=== PATIENT | female | born 1965 | race Caucasian/White ===

== ENCOUNTER 2021-04-17 16:32 | Outpatient (REF) | payer BC, SELFPAY ==
[2021-04-17 17:35] LABS: Alanine Aminotransferase 40 U/L (0-31); Albumin Level 4.4 g/dL (3.5-5.0); Alkaline Phosphatase 105 U/L (39-117); Aspartate Amino Transferase 20 U/L (5-31); Bilirubin Total 0.6 mg/dL (0.0-1.0); Blood Urea Nitrogen 14 mg/dL (9-16); Calcium 9.4 mg/dL (8.4-10.2); Estimated Glomerular Filt Rate > 60; Glucose Random 106 mg/dL (60-115); Total Protein 6.8 g/dL (6.5-8.0)
[2021-04-17 17:50] LABS: T4 Thyroxine 6.8 ug/dL (4.5-12.0); Thyroid Stimulating Hormone 1.11 uIU/mL (0.32-4.0)
[2021-04-17 17:53] LABS: Anion Gap 13 (12-20); Carbon Dioxide 22 mmol/L (22-29); Chloride 111 mmol/L (96-108); Potassium 4.3 mmol/L (3.3-5.1); Sodium 142 mmol/L (135-145)
[2021-04-17 18:03] LABS: Folate 7.9 ng/mL (> or = 4.0); Vitamin B12 319 pg/mL (200-900)
== END 2021-04-17 16:33 | disposition home or self-care (01) ==
LOC: HO.LAB 16:32
PROVIDERS: PCP Internal Medicine; Visit Provider Psychiatry & Neurology Neurology
DX: G31.84 Mild cognitive impairment of uncertain or unknown etiology (principal)
CPT/HCPCS: 36415; 80053; 82607; 82746; 84436; 84443

== ENCOUNTER 2021-04-30 16:22 | Outpatient (REF) | payer BC, SELFPAY ==
--- NOTE | ~2021-04-30 | CT_ITS ---
EXAMINATION: CT HEAD WITHOUT CONTRAST CLINICAL INFORMATION: Mild cognitive impairment COMPARISON: None TECHNIQUE: Contiguous axial imaging was performed from the skull base to vertex without intravenous administration of contrast. This CT examination was performed using dose optimization techniques as appropriate, variously including the following: *Automated exposure control *Adjustment of mA and/or kV according to patient size (this includes techniques or standardized protocols for targeted exams where dose is matched to indication/reason for exam; i.e. extremities or head) *Use of iterative reconstruction technique DLP: 853 mGy-cm FINDINGS: There is no evidence of acute intracranial hemorrhage or territorial infarction. No abnormal mass effect or midline shift is seen. Fleming to white matter differentiation is well preserved. No extra-axial fluid collections are identified. The ventricles are normal in size. There is no abnormal attenuation within the brain parenchyma. The osseous structures and soft tissues are normal. The mastoid air cells and visualized portions of the paranasal sinuses are well aerated. CT/CT head/brain wo con IMPRESSION: Unremarkable exam.
== END 2021-04-30 16:23 | disposition home or self-care (01) ==
LOC: HO.CT 16:22
PROVIDERS: PCP Internal Medicine; Visit Provider Psychiatry & Neurology Neurology
DX: G31.84 Mild cognitive impairment of uncertain or unknown etiology (principal)
CPT/HCPCS: 70450

== ENCOUNTER 2022-02-26 16:47 | Emergency (ER) | payer BC, SELFPAY ==
[2022-02-26 17:05] VITALS: BP 185/70; PULSE 75; RESP 18; TEMP 36.8; O2SAT 99; BMI 34.3
--- NOTE | 2022-02-26 19:03 | ED_ITS ---
HPI - Dizziness General Chief Complaint: Dizziness Stated Complaint: Vertigo/Vomiting Time Seen by Provider: 02/26/22 19:03 Source: patient Mode of arrival: ambulatory Limitations: no limitations History of Present Illness HPI Narrative: Patient history of vertigo in the past for last few days been having similar e pisode got worse in last 2 days was seen at [facility] Emergency Room had a CT scan and labs which were negative discharged on meclizine comes here for worsening of dizziness with nausea and vomiting patient was seen by neurologist prior to sending to the ER. Patient denies any headache patient is on Lovenox for anticardiolipin syndrome followed by [facility] Related Data Previous Rx's Medication Instructions Recorded lorazepam 1 mg tablet 1 mg PO BID PRN vertigo #10 tabs 02/26/22 ondansetron 4 mg disintegrating 4 mg PO Q6-8H PRN nausea and 02/26/22 tablet vomiting #10 tabs Allergies Allergy/AdvReac Type Severity Reaction Status Date / Time No Known Allergies Allergy Verified 02/26/22 19:15 [facility] Past Medical History Medical History (Updated 02/27/22 @ 00:03 by Background Emily) Anti-cardiolipin antibody syndrome Anticoagulation adequate 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 Oriented X3. In moderate distress. Eyes: PERRLA, no nystagmus ENT: Pharynx normal. Oral Mucosa moist Neck: Normal inspection. Neck supple. CVS: Normal heart rate and rhythm. Pulses normal. Respiratory: No respiratory distress. Equal air entry bilateral, no wheezing/rales/rhonchi Abdomen: Soft and nontender. Bowel sounds are present, no mass palpable, no CVA tenderness Skin: Skin warm and dry. Normal skin color. Normal skin turgor. Extremities: No lower extremity edema. No calf tenderness Neuro: Oriented X 3. No motor deficit. No sensory deficit.No cerebellar signs , cranial nerves II-XII intact MDM - Dizziness MDM Narrative Medical decision making narrative: Patient had CT scan of the head done yesterday which was negative no headache at this time patient felt better after Valium able to ambulate went to bathroom clinically patient had benign positional vertigo will discharge patient home on Ativan and Zofran Medical Records Attestation: I reviewed the patient's medical records. Lab Data Attestation: I reviewed the patient's lab results. Result diagrams: 02/26/22 19:41 02/26/22 Unknown Labs: Lab Results 02/26/22 02/26/22 Range/Units 19:41 Unknown WBC 12.2 H (4.8-10.8) X10*3/uL RBC 4.89 (4.20-5.50) X10*6/uL Hgb 13.5 (12.0-16.0) g/dl Hct 41.4 (37.0-47.0) % MCV 84.7 (80.0-98.0) fL MCH 27.6 (27.0-33.0) pg MCHC 32.6 (31.0-35.0) g/dl RDW 13.3 (11.0-16.0) % Plt Count 250 (160-400) X10*3/uL MPV 11.9 (9.4-12.3) fL Immature Gran % (Auto) 0.4 (0.0-0.4) % Neut % (Auto) 86.3 H (45-73) % Lymph % (Auto) 8.7 L (20-40) % [place] % (Auto) 4.0 (2-11) % Eos % (Auto) 0.2 (0-4) % Baso % (Auto) 0.4 (0-2) % Lymph # (Auto) 1.1 L (1.2-4.9) X10*3/uL [place] # (Auto) 0.5 (0.1-1.2) X10*3/uL Eos # (Auto) 0.0 (0.0-0.4) X10*3/uL Baso # (Auto) 0.1 (0.0-0.2) X10*3/uL Abs Immat Gran (auto) 0.05 H (0.00-0.03) X10*3/uL Absolute Neuts (auto) 10.5 H (2.0-8.3) x10*3/uL Absolute Nucleated RBC 0.000 (0.0-0.012) X10*3/uL Nucleated RBC % (auto) 0.0 (0.0-0.2) /100WBC Sodium Cancelled Potassium Cancelled Chloride Cancelled Carbon Dioxide Cancelled Anion Gap Cancelled BUN Cancelled Creatinine Cancelled Estim Creat Clear Calc Cancelled Estimated GFR Cancelled Random Glucose Cancelled Calcium Cancelled Discharge Plan Discharge Clinical Impression: Benign paroxysmal positional vertigo Patient Disposition: Home, Self-Care Instructions: Benign Paroxysmal Positional Vertigo (ED) Additional Instructions: Care and cautions as advised Continue meclizine 1 tablet every 8 hours as needed Start taking Ativan 1 tablet every 8 hours as needed for severe vertigo Brannon maneuver as advised Follow with ENT Prescriptions: New lorazepam 1 mg tablet 1 mg PO BID PRN (Reason: vertigo) Qty: 10 0RF ondansetron 4 mg tablet,disintegrating 4 mg PO Q6-8H PRN (Reason: nausea and vomiting) Qty: 10 0RF Interventions: ED Discharge Assessment Last Done: 02/26/22 23:25 Discharge Date/Time: 02/26/22 23:26
[2022-02-26] MEDS: 0.9 % Sodium Chloride 1,000 ML 999 ML IV ×2 (19:41→20:49)
[2022-02-26] MEDS: Prochlorperazine Edisylate 10 MG/2 ML VIAL IVPUSH (19:41)
[2022-02-26] MEDS: diazePAM 10 MG/2 ML CARTRIDGE 5 MG IVPUSH (19:45)
[2022-02-26 19:51] LABS: MANUAL DIFF FLAG NO
[2022-02-26 19:53] LABS: Basophils Absolute Auto 0.1 X10*3/uL (0.0-0.2); Basophils Percent Auto 0.4 % (0-2); Eosinophils Percent Auto 0.2 % (0-4); Hematocrit 41.4 % (37.0-47.0); Hemoglobin 13.5 g/dl (12.0-16.0); Imm Gran Abs Auto 0.05 X10*3/uL (0.00-0.03); Imm Gran Pct Auto 0.4 % (0.0-0.4); Lymphocytes Absolute Auto 1.1 X10*3/uL (1.2-4.9); Lymphocytes Percent Auto 8.7 % (20-40); Mean Corpuscular HGB Conc 32.6 g/dl (31.0-35.0); Mean Corpuscular Hemoglobin 27.6 pg (27.0-33.0); Mean Corpuscular Volume 84.7 fL (80.0-98.0); Mean Platelet Volume 11.9 fL (9.4-12.3); Monocytes Absolute Auto 0.5 X10*3/uL (0.1-1.2); Neutrophils Absolute Auto 10.5 x10*3/uL (2.0-8.3); Neutrophils Percent Auto 86.3 % (45-73); Platelet Count 250 X10*3/uL (160-400); Red Blood Count 4.89 X10*6/uL (4.20-5.50); Red Cell Distribution Width 13.3 % (11.0-16.0); White Blood Count 12.2 X10*3/uL (4.8-10.8)
[2022-02-26 20:24] VITALS: BP 164/74; PULSE 86; RESP 16; TEMP 36.6; O2SAT 98
[2022-02-26] MEDS: ondansetron HCL 4 MG/2 ML VIAL IVPUSH (20:49)
[2022-02-26 22:47] VITALS: BP 156/80; PULSE 84; RESP 16; TEMP 36.8; O2SAT 98
[2022-02-26] MEDS: Meclizine HCl 25 MG TABLET 50 MG PO (23:21)
== END 2022-02-26 23:26 | disposition home or self-care (01) ==
PROVIDERS: Emergency Provider Internal Medicine; PCP Internal Medicine
DX: H81.10 Benign paroxysmal vertigo, unspecified ear (principal); D68.61 Antiphospholipid syndrome; Z86.711 Personal history of pulmonary embolism; Z79.899 Other long term (current) drug therapy
CPT/HCPCS: 36415; 85025; 96361; 96374; 96375; 99284; J2405; J3360

== ENCOUNTER 2024-01-27 10:28 | Outpatient (REF) | payer BC, SELFPAY ==
[2024-01-27 10:47] LABS: MANUAL DIFF FLAG NO
[2024-01-27 12:02] LABS: Basophils Percent Auto 0.7 % (0-2); Eosinophils Absolute Auto 0.2 X10*3/uL (0.0-0.4); Eosinophils Percent Auto 2.7 % (0-4); Hematocrit 37.2 % (37.0-47.0); Imm Gran Abs Auto 0.02 X10*3/uL (0.00-0.03); Imm Gran Pct Auto 0.3 % (0.0-0.4); Lymphocytes Absolute Auto 1.6 X10*3/uL (1.2-4.9); Lymphocytes Percent Auto 26.2 % (20-40); Mean Corpuscular HGB Conc 32.3 g/dl (31.0-35.0); Mean Corpuscular Hemoglobin 29.6 pg (27.0-33.0); Mean Corpuscular Volume 91.6 fL (80.0-98.0); Mean Platelet Volume 11.3 fL (9.4-12.3); Monocytes Absolute Auto 0.4 X10*3/uL (0.1-1.2); Monocytes Percent Auto 6.3 % (2-11); Neutrophils Absolute Auto 3.8 x10*3/uL (2.0-8.3); Neutrophils Percent Auto 63.8 % (45-73); Platelet Count 196 X10*3/uL (160-400); Red Blood Count 4.06 X10*6/uL (4.20-5.50); Red Cell Distribution Width 12.6 % (11.0-16.0); White Blood Count 5.9 X10*3/uL (4.8-10.8)
[2024-01-27 12:38] LABS: Erythrocyte Sedimentation Rate 12 MM/HR (0-20)
[2024-01-27 12:42] LABS: Estimated Average Glucose 85 mg/dL; Hemoglobin A1c % 4.6 % (<6.0)
[2024-01-27 12:47] LABS: Alanine Aminotransferase 20 U/L (0-31); Albumin Level 4.2 g/dL (3.5-5.0); Alkaline Phosphatase 91 U/L (39-117); Anion Gap 13 (12-20); Aspartate Amino Transferase 17 U/L (5-31); Bilirubin Total 0.3 mg/dL (0.0-1.0); Blood Urea Nitrogen 15 mg/dL (9-16); C Reactive Protein 1.25 mg/dL (< or = 0.50); Calcium 8.9 mg/dL (8.4-10.2); Carbon Dioxide 25 mmol/L (22-29); Chloride 110 mmol/L (96-108); Estimated Glomerular Filt Rate > 60; Glucose Random 106 mg/dL (60-115); Iron 59 mcg/dL (30-160); Percent Iron Saturation 26 % (15-50); Potassium 3.7 mmol/L (3.3-5.1); Sodium 144 mmol/L (135-145); Total Iron Binding Capacity 226 mcg/dL (228-428); Total Protein 6.7 g/dL (6.5-8.0); Unsaturated Iron Binding 167 ug/dL
[2024-01-27 12:54] LABS: Rheumatoid Factor < 13.0 IU/mL (<15.0)
[2024-01-27 13:06] LABS: Free T4 (Free Thyroxine) 0.77 ng/dL (0.71-1.85); Thyroid Stimulating Hormone 0.94 uIU/mL (0.32-4.0); Vitamin D 25-OH Total 24.8 ng/mL (>30)
[2024-01-27 13:09] LABS: Folate 6.1 ng/mL (> or = 4.0); Vitamin B12 430 pg/mL (200-900)
[2024-01-28 13:59] LABS: Lyme Abs Screen <0.90 index
[2024-01-28 14:33] LABS: Cyclic Citrullinated Peptide <16 UNITS
[2024-01-29 07:44] LABS: Anti DNA DS Antibody 1 IU/mL
[2024-02-02 07:59] LABS: Anti Nuclear Antibody Pattern Nuclear, Homogeneous; Anti Nuclear Antibody Screen POSITIVE (NEGATIVE)
[2024-02-04 11:08] LABS: A. Phagocytophilum Ab IgG <1:64 (<1:64); A. Phagocytophilum Ab IgM <1:20 (<1:20); E. Chaffeensis Ab IgG <1:64 (<1:64); E. Chaffeensis Ab IgM <1:20 (<1:20)
== END 2024-01-27 10:29 | disposition home or self-care (01) ==
LOC: HO.LAB 10:28
PROVIDERS: PCP Internal Medicine; Visit Provider Physician Assistant
DX: R53.83 Other fatigue (principal)
CPT/HCPCS: 36415; 80053; 82306; 82607; 82746; 83036; 83540; 84439; 84443; 85025; 85652; 86038; 86039; 86140; 86200; 86225; 86431; 86617; 86618; 86666

== ENCOUNTER 2025-07-14 14:25 | Outpatient (AMB) | payer BC, SELFPAY ==
--- NOTE | 2025-07-14 14:32 | MHC.OFFVIS ---
Intake Visit Reasons: Follow up Allergies No Known Allergies Allergy (Verified 07/14/25 14:46) Medication List - Last Reconciled 07/14/25 by Ary Baker CNP acetaminophen-codeine 300-30 mg 2 tabs PO Q6H PRN 30 days alprazolam 0.5 mg PO Q6-8H PRN amitriptyline 150 mg PO BEDTIME bupropion HCl XL 300 mg PO DAILY enoxaparin mg subcut estradiol 0.01%(0.1mg/gram) vaginal fluoxetine 40 mg PO DAILY lorazepam 1 mg PO BID PRN ondansetron 4 mg PO Q6-8H PRN ondansetron HCl 8 mg PO DAILY PRN semaglutide (weight loss) (Wegovy) mg subcut topiramate 100 mg PO BID HPI Comments Details: She was doing okay. Migraines were happening about 1-2x/month with some mild headaches. She had few more migraines this month which she thought may be triggered by lack of sleep. No severe migraines with abnormal sensations or speech difficulties. Tylenol #3 as needed helps. She was waking up between 4-4:30am the last few weeks without specific reason. She was using CPAP, but was finding her mask moving at night lately. Stress was okay. Previously, she was getting about 2-3 headaches/week. Sleep was okay with CPAP and not as tired during day anymore.?No further episodes of abnormal sensation in legs or elsewhere in body or speech difficulties with migraines. On 12/28/2023, she developed severe migraine and had an uncomfortable, crawling sensation that slowly spread up both of her legs. She was told that she was slurring her words and seemed to be falling asleep mid-sentence. She took a two-hour nap. She woke without headache or any other symptoms and speech was normal. The following day, she did not have any symptoms but was advised [place] [facility] [place]. No similar episodes prior to or following this. 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 No triggers identified aside from heat. She has tried Tylenol, Vicodin, and Imitrex for headaches in the past without relief. Hx of antiphospholipid antibody syndrome and pulmonary embolism 01/2017, on Lovenox. 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 Review of Systems Const Denies chills, Denies daytime sleepiness, Denies difficulty sleeping, Reports fatigue, Denies fever(s), Denies frequent falls, Reports headache(s), Denies increased appetite, Denies poor appetite, Denies snoring, Denies weakness, Denies weight gain and Denies weight loss Eyes Denies loss of vision ENT Denies vertigo, Denies dizziness, Reports headache(s) and Denies neck pain Card Denies chest pain at rest, Denies chest pain with activity, Denies syncope, Denies leg edema, Denies palpitations, Denies dyspnea and Denies dyspnea on exertion Resp Denies cough, Denies dyspnea, Denies dyspnea on exertion and Denies snoring GI Denies abdominal pain, Denies constipation, Denies heartburn, Denies diarrhea and Denies nausea Denies urinary frequency, Denies urinary incontinence and Denies urinary urgency Musc Denies abnormal gait, Reports back pain, Denies myalgias, Denies arthralgias, Denies neck pain, Denies numbness and Denies tingling Neuro Denies abnormal gait, Denies vertigo, Denies dizziness, Denies syncope, Denies frequent falls, Reports headache(s), Denies lack of coordination, Denies loss of vision, Denies memory loss, Denies numbness, Denies Other visual disturbances, Denies restless legs, Denies seizure-like activity, Denies tingling, Denies paresthesias, Denies tremor(s) and Denies weakness Psych Denies anxiety, Denies depression, Denies auditory hallucinations, Denies memory loss and Denies visual hallucinations Endo Reports fatigue and Denies palpitations Physical Exam Const Other: General Appearance:? normal, in no acute distress. Heart:? S1, S2 normal, no murmurs. Lungs:? clear anteriorly and posteriorly. Musculoskeletal:? normal. Extremities:? no edema. Psych:? alert, oriented, cognitive function intact, cooperative with exam. Neuro Other: Abnormal Neurological Findings:?R beating nystagmus. Mental Status: alert and oriented X 3. Normal attention, orientation, memory, and affect. Cranial Nerves: Pupils are equal, round, and reactive to light. External ocular muscles are intact. Visual reagan are full, no ptosis. Face is symmetrical, no facial weakness or droop. Facial sensations are normal. Tongue protrudes in midline. Palate elevates symmetrically. Shoulder shrugging is normal Motor Examination: Normal muscle tone, bulk and strength. No atrophy or fasciculations. No drift of the extended upper extremities. DTR 2+. Plantars are flexor. Sensory Exam: Normal light touch, temperature, pinprick, vibration, and joint-position sensations. Rhomberg sign is absent. Coordination: No ataxia. No titubation. Gait Exam: Within normal limits. Cerebellar Signs: Rsmrhy-lr-nios is okay. Extrapyramidal System: No tremor, rigidity with normal facial expressions. No bradykinesia. No bradyphrenia. Normal arm swing and posture. No propulsion or retropulsion. Speech: Normal. Results Reviewed Results Reviewed: 12/29/2023 [place] [facility] [place] Subtle outpouching of distal cervical right internal carotid artery may reflect a subtle focal dissection or pseudoaneurysm which is of unknown acuity, no proximal occlusion or high grade stenosis in the major arteries of the head and neck MRI brain without contrast 12/[place]/2023 [place] [facility] [place] No acute infarct, single small FLAIR bright focus within the left odom radiata which is nonspecific Assessment & Plan Assessment & Plan (1) Migraine: Code(s): G43.909 - Migraine, unspecified, not intractable, without status migrainosus Category: Medical Qualifiers: Intractability: not intractable Migraine type: unspecified Status migrainosus presence: without status migrainosus Qualified Code(s): G43.909 - Migraine, unspecified, not intractable, without status migrainosus Plan: Continue topiramate 50mg 2 tablets twice a day. Continue amitriptyline 150mg 1 tablet at bedtime. Continue acetaminophen-codeine 300-30mg #3 2 tablets as needed q6h for headache #60 for 30 days. Continue ondansetron 8mg 1 tablet as needed for nausea/vomiting #10 for 30 days. Follow up with sleep medicine. Follow up in 6 months or sooner as needed. Medications: New amitriptyline 150 mg PO BEDTIME 90 tabs 1RF 90 days topiramate 100 mg (2 x 50 mg) PO BID 360 tabs 1RF 90 days Refilled acetaminophen-codeine 300-30 mg 2 tabs PO Q6H PRN 60 tabs 0RF pain 30 days Coding Level of Care Code Est Pt Level 4 (63920) Diagnoses Migraine without status migrainosus, not intractable, unspecified migraine type G43.909 Intractability: not intractable Migraine type: unspecified Status migrainosus presence: without status migrainosus
--- OUTSIDE RECORDS SUMMARY | 2025-07-14 20:02 | XMS_ITS | Data Portability ---
Author Organization [facility], Telehealth Patient Home Address [address] [place] [address] Assessment Encounter Date Assessment Date Assessment LastModified by Organization Details LastModified Time 08/08/2023 08/08/2023 Patient agreed and verbally consents to this audio and video Telehealth appt via a secure platform [email or web address] Not available 08/08/2023 11:12:42 Plan of Treatment Reminders Order Date Submit Date Provider Last Modified By Organization Details Last Modified Time Details Appointments FOLLOW UP 15 2025 10:00A M NANCY SUÁREZ Not available Not available Not available Lab iron + TIBC + ferritin, serum 2023 024 [facility], [address] [place] [address], [id number], 01/20/2024 15:21:27 vitamin B12 + folate, serum or blood 2023 024 [facility], [address] [place] [address], [id number], 01/20/2024 15:21:27 vitamin D, 25-hydrox y, total, serum 2023 024 [facility], [address] [place] [address], [address], 01/20/2024 15:21:26 TSH + free T4, serum 2023 024 [facility], [address] [place] [address], [address], 01/20/2024 15:21:26 CBC w/ auto diff 2023 [facility], [address] [place] [address], [id number], 01/20/2024 15:21:26 hemoglobi n A1c, QN, blood 2023 [facility], [address] [place] [address], [address], 01/20/2024 15:21:27 ESR (erythroc yte sedimenta tion rate), blood 2023 [facility], [address] [place] [address], [id number], 01/20/2024 15:21:26 C-reactiv e protein, quantitat rehan, serum or plasma 2023 [facility], [address] [place] [address], [address], 01/20/2024 15:21:27 CMP, serum or plasma 2023 [facility], [address] [place] [address], [address], 01/20/2024 15:21:26 lyme disease igg+igm, serum, reflex western blot 2023 [facility], [address] [place] [address], [id number], 01/29/2024 11:26:47 anaplasma phagocyto philum + ehrlichia chaffeens is IgG + IgM panel, serum 2023 [facility], [address] [place] [address], [address], 02/05/2024 11:38:25 KYLEE + rf (antinucl ear antibodie s + rheumatoi d factor), quantitat rehan, serum 2023 [facility], [address] [place] [address], [address], 02/02/2024 11:15:53 ccp (cyclic citrullin ated peptide) igg, serum 2023 [facility], [address] [place] [address], [address], 01/20/2024 15:21:26 anti-dsdn a Ab, serum, reflex confirmat ion 2023 [facility], [address] [place] [address], [address], 01/20/2024 15:21:27 Referral sleep medicine referral 2021 skylar Chen MD, [address] [facility], [address], [place], [address], 09/05/2022 08:42:59 hand surgeon referral 2021 skylar Schmitt MD, [address] [place] [address], [address], 08/06/2022 13:27:22 Procedures None recorded. Surgeries None recorded. Imaging MR, angiogram , brain, w/o contrast - NOT REQUIRED Procedure codes: 56222 Call Reference #: [id number] Resolutio n: Completed on 4 at 03:45 pm. Call ref #[id number] 05. 2023 [facility] ([facility]), [address], [place], [address], 01/26/2024 09:07:41 electroen cephalogr am 2023 [facility], [address], [address], [place], [address], 02/03/2024 08:07:08 MR, angiogram , carotid arteries, w/ contrast - NOT REQUIRED Procedure codes: 35041, 34854 Call Reference #: [id number] Resolutio n: Completed on 4 at 12:17 pm. Call ref #[id number] 595. 2023 024 [facility] ([facility]), [address], [place], [address], 01/26/2024 09:07:27 Medication Orders Wegovy 1 mg/0.5 mL subcutane ous pen injector 2024 025 [facility] #[id number], [address] [place], [address], 03/30/2025 13:30:00 bupropion HCl XL 150 mg 24 hr tablet, extended release 2023 024 [facility]886, [address], [place], [id number], 03/07/2025 09:12:58 levofloxa devonte 500 mg tablet 2022 023 [facility] #61530, [address], [place], [id number], 10/31/2023 11:47:12 prednison e 10 mg tablet 2022 023 [facility] #00425, [address], [place], [id number], 10/31/2023 11:47:17 phentermi ne 37.5 mg capsule 2022 023 [facility]27502, [address], [place], [id number], 01/20/2024 14:57:39 Medrol ([place]) 4 mg tablets in a dose pack 2022 023 [facility] #88364, [address], [place], [id number], 03/07/2025 09:12:42 phentermi ne 15 mg capsule 2021 022 [facility] #73738, [address], [place], [id number], 10/14/2022 16:05:22 Medrol ([place]) 4 mg tablets in a dose pack 2021 022 [facility] #76051, [address], [place], [id number], 03/07/2025 09:12:42 Patient TargetsNo targets recorded. Patient InstructionsNo instructions recorded. Reason for Referral Hand Surgeon Referral for Ca rpal tunnel syndrome of right wrist rigth sided carpal tunnel and tenosynovitis right wrist Referring Physician: Latia Milan, Internal Medicine, Encounter Date: 07/26/2022 Sleep Medicine Referral for Obstructive sleep apnea syndrome need reassessment of her CPAP, over ten years old Referring Physician: Latia Milan, Internal Medicine, Encounter Date: 07/26/2022 Results Created Date Observation Date Name Description Value Unit Range Abnormal Flag Note LastModifiedBy Organization Detail LastModifiedTime 06/11/2005/15/2023 sleep study , diagn ostic (PROC ) No observ ation record ed. [facility] [address] [place], [address], 06/11/2023 14:57:08 02/13/2002/13/2024 jermaine DIETZ, camelia id arter ies, w/ contr ast No observ ation record ed. [facility] [address] [place], [address], 02/16/2024 12:03:46 02/13/2002/13/2024 MR, jermaine nayak, carot id arter ies, w/ contr ast No observ ation record ed. [facility] [address] [place], [address], 02/16/2024 12:03:47 03/30/20 24 03/19/2024 elect roenc ephal ogram No observ ation record ed. [email or web address] [address], [address], 03/30/2024 13:29:49 03/30/20 24 03/19/2024 elect roenc ephal ogram No observ ation record ed. [email or web address] [address], [address], 04/05/2024 14:13:14 Result Notes None recorded. 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 Active 2017 Not Available [facility] 15:51:08 Obstruct rehan sleep apnea syndrome 26145419 Active 2017 Not Available [facility] 15:51:08 [facility] hyperten vangie 31384100 Active 2017 Not Available [facility] 15:51:08 Pulmonar y embolism 79512469 Active 2017 antiphosp holipid syndrome Not Available [facility] 15:51:08 Hemolyti c anemia 29303897 Active 2017 Not Available [facility] 15:51:08 Antiphos pholipid syndrome 67292317 Active 2017 Not Available [facility] 15:51:08 Intersti tial lung disease 490952836 Active 2017 Not Available [facility] 15:51:08 Migraine 84252851 Active 2017 Not Available [facility] 1 15:51:08 Cough 27671036 Active 2021 NANCY SUÁREZ [address] [place], [address], [facility] 2 15:05:37 Vertigo 927478114 Active 2021 NANCY SUÁREZ [address] [place], [address], [facility] 2 12:12:54 Costal chondrit is 72879295 Active 2021 NANCY SUÁREZ [address] [place], [address], [facility] 2 10:39:25 Acute sinusiti s 31901756 Active 2021 NANCY SUÁREZ [address] [place], [address], [facility] 2 12:18:32 Acute otitis media 4260215 Active 2021 NANCY SUÁREZ [address] [place], [address], [facility] 2 16:12:50 Serous otitis media 11509243 Active 2021 NANCY SUÁREZ [address] [place], [address], [facility] 2 09:32:17 Overweig ht 043830953 Active 2021 NANCY SUÁREZ [address] [place], [address], [facility] 2 09:35:16 Carpal tunnel syndrome of right wrist 56460337196 9108 Active 2021 NANCY SUÁREZ [address] [place], [address], [facility] 2 09:36:54 Fatigue 51865370 Active 2021 NANCY SUÁREZ [address] [place], [address], [facility] 2 09:40:04 Serous otitis media 64872235 Active 2022 NANCY SUÁREZ [address] [place], [address], [facility] 3 12:19:50 Acute urinary tract infectio n 910690658 Active 2022 NANCY SUÁREZ [address] [place], [address], [facility] 3 10:09:07 Insulin resistan ce 149816345 Active 2022 NANCY SUÁREZ [address] [place] [address], [address], [facility] 3 14:23:16 Obesity 695440554 Active 2022 NANCY SUÁREZ [address] [place] [address], [address], [facility] 3 08:59:18 Anemia 106886073 Active 2022 NANCY SUÁREZ [address] [place] [address], [address], [facility] 3 11:11:37 Carotid bruit 117689590 Active 2023 NANCY SUÁREZ [address] [place] [address], [address], [facility] 4 15:11:06 Transien t cerebral ischemia 535183822 Active 2023 NANCY SUÁREZ [address] [place] [address], [address], [facility] 4 15:15:08 Anxiety 28742451 Active 2023 NANCY SUÁREZ [address] [place], [address], [facility] 4 15:18:48 Acute bronchit is 14286086 Active 2024 NANCY SUÁREZ [address] [place], [address], [facility] 5 09:35:20 Problem Notes None recorded. Procedures Surgical History Date Name Laterality Status Provider Name and Address Organization Details Recorded Time 7 Most Recent Mammogram completed [facility] 04/30/2019 08:36:47 7 Date of Last Pap Smear completed [facility] 04/30/2019 08:37:35 Imaging Results None recorded. Procedure Notes None recorded. Medical Equipment None Reported. Allergies No known drug allergies Medications Name Sig Start Date Stop Date Status Note LastModified by Organization Details LastModified Time Prescriptio n - Prior Authorizati on Request active Not Available Not Available N ot Available celecoxib 200 mg capsule 08/19 completed Not Available Not Available Not Available cyclobenzap rine 10 mg tablet TAKE 1 TABLET BY MOUTH THREE TIMES DAILY FOR 15 DAYS 08/19 completed Not Available Not Available Not Available amoxicillin 500 mg capsule TAKE 1 CAPSULE BY MOUTH THREE TIMES DAILY UNTIL GONE 03/08 completed Not Available Not Available Not Available prednisone 10 mg tablet take 50 mg x 2 daystake 40 mg x 2 daystake 30 mg x 2 daystake 20 mg x 2 daystake 10 mg x 2 days 10/30 completed Not Available Not Available Not Available amitriptyli ne 150 mg tablet TAKE 1 TABLET BY MOUTH DAILY AT BEDTIME active Not Available Not Available No t Available azithromyci n 250 mg tablet TAKE 2 TABLETS (500 MG) BY ORAL ROUTE ONCE DAILY FOR 1 DAY THEN 1 TABLET (250 MG) BY ORAL ROUTE ONCE DAILY FOR 4 DAYS 03/07 completed Not Available Not Available Not Available amitriptyli ne 75 mg tablet TAKE 1 TABLET BY MOUTH AT BEDTIME 09/18 completed Not Available Not Available Not Available benzonatate 200 mg capsule TAKE 1 CAPSULE BY MOUTH THREE TIMES DAILY FOR 14 DAYS NEEDED 08/19 completed Not Available Not Available Not Available ondansetron HCl 8 mg tablet TAKE 1 TABLET BY MOUTH NEEDED FOR 30 DAYS 03/07 completed Not Available Not Available Not Available ondansetron HCl 4 mg tablet TAKE 1 TABLET BY MOUTH UP TO THREE TIMES DAILY NEEDED FOR NAUSEA 01/19 completed Not Available Not Available Not Available clobetasol 0.05 % topical cream APPLY 1 APPLICATI ON TOPICALLY TWICE DAILY X 2 WEEKS THEN ONCE DAILY FOR 2 WEEKS 03/07 completed Not Available Not Available Not Available phentermine 15 mg capsule TAKE 1 CAPSULE BY MOUTH EVERY DAY 10/14 completed Not Available Not Available Not Available Periogard 0.12 % mouthwash SWISH WITH 1/2 OZ FOR 30 SECONDS THAN SPIT TWICE DAILY FOR 2 WEEKS 03/11 completed Not Available Not Available Not Available meclizine 12.5 mg tablet TAKE 1 TABLET BY MOUTH THREE TIMES DAILY NEEDED FOR 7 DAYS 10/15 completed Not Available Not Available Not Available acetaminoph en 300 mg-codeine 30 mg tablet TAKE 2 TABLETS BY MOUTH EVERY 6 HOURS NEEDED FOR PAIN FOR 30 DAYS 03/11 completed Not Available Not Available Not Available sulfamethox azole 800 mg-trimetho prim 160 mg tablet TAKE 1 TABLET BY MOUTH EVERY 12 HOURS FOR 7 DAYS 10/30 completed Not Available Not Available Not Available ondansetron 8 mg disintegrat ing tablet DISSOLVE 1 TABLET ON THE TONGUE TWICE DAILY FOR 7 DAYS NEEDED 10/15 completed Not Available Not Available Not Available oxycodone-a cetaminophe n 5 mg-325 mg tablet Take 1 tablet every 6 hours by oral route as needed for 7 days. 07/14 completed Not Available Not Available Not Available alprazolam 0.5 mg tablet TAKE 1 TABLET BY MOUTH EVERY 6 TO 8 HOURS NEEDED 2024 active Not Available Not Available Not Avai lable meclizine 25 mg tablet 10/15 completed Not Available Not Available Not Available metronidazo le 0.75 % topical cream APPLY EXTERNALL Y TO FACE TWICE DAILY 10/15 completed Not Available Not Available Not Available bisacodyl 5 mg tablet,penelope yed release 10/04 completed Not Available Not Available Not Available lorazepam 1 mg tablet TAKE 1 TABLET BY MOUTH TWICE DAILY NEEDED FOR VERTIGO 03/11 completed Not Available Not Available Not Available levofloxaci n 500 mg tablet TAKE 1 TABLET BY MOUTH EVERY DAY 10/30 completed Not Available Not Available Not Available estradiol 0.01% (0.1 mg/gram) vaginal cream 03/07 completed Not Available Not Available Not Available methylpredn isolone 4 mg tablets in a dose pack FOLLOW PACKAGE DIRECTION S 03/07 completed Not Available Not Available Not Available ipratropium bromide 42 mcg (0.06 %) nasal spray 04/30 completed Not Available Not Available Not Available ondansetron 4 mg disintegrat ing tablet DISSOLVE 1 TABLET ON THE TONGUE EVERY 6 TO 8 HOURS NEEDED FOR NAUSEA OR VOMITING 08/19 completed Not Available Not Available Not Available fluoxetine 20 mg capsule TAKE 2 CAPSULES BY MOUTH EVERY DAY active Not Available Not Available No t Available amitriptyli ne 100 mg tablet TK 1 T PO QD HS 09/18 completed Not Available Not Available Not Available phentermine 37.5 mg capsule TAKE 1 CAPSULE BY MOUTH EVERY DAY 01/19 completed Not Available Not Available Not Available amoxicillin 875 mg-potassiu m clavulanate 125 mg tablet TAKE 1 TABLET BY MOUTH EVERY 12 HOURS FOR 7 DAYS 07/26 completed Not Available Not Available Not Available oxycodone 5 mg tablet TAKE 1 TABLET BY MOUTH EVERY 4 HOURS NEEDED FOR PAIN 03/11 completed Not Available Not Available Not Available neomycin-po lymyxin-hyd rocort 3.5 mg-10,000 unit/mL-1 % ear drops,susp SHAKE LIQUID AND INSTILL 4 DROPS TO AFFECTED EAR THREE TIMES DAILY 08/19 completed Not Available Not Available Not Available enoxaparin 60 mg/0.6 mL subcutaneou s syringe 06/30 completed Not Available Not Available Not Available enoxaparin 80 mg/0.8 mL subcutaneou s syringe INJECT 1 SYRINGE EVERY 12 HOURS 03/07 completed Not Available Not Available Not Available enoxaparin 100 mg/mL subcutaneou s syringe 90mg twice a day 10/20 completed Not Available Not Available Not Available azelaic acid 15 % topical gel APPLY TOPICALLY TO FACE 1 TO 2 TIMES DAILY 10/15 completed Not Available Not Available Not Available bupropion HCl XL 300 mg 24 hr tablet, extended release TAKE 1 TABLET DAILY active Not Available Not Available No t Available bupropion HCl XL 150 mg 24 hr tablet, extended release TAKE 1 TABLET BY MOUTH EVERY DAY DIRECTED 03/07 completed Not Available Not Available Not Available topiramate 50 mg tablet TAKE 2 TABLETS BY MOUTH TWICE DAILY active Not Available Not Available No t Available Boostrix Tdap 2.5 Lf unit-8 mcg-5 Lf/0.5 mL intramuscul ar syringe 06/30 completed Not Available Not Available Not Available diclofenac 1 % topical gel APPLY 2 GRAMS TO THE AFFECTED AREA(S) BY TOPICAL ROUTE 4 TIMES PER DAY 03/11 completed Not Available Not Available Not Available GaviLyte-G 236 gram-22.74 gram-6.74 gram-5.86 gram oral solution 10/04 completed Not Available Not Available Not Available bupropion HCl XL 450 mg 24 hr tablet, extended release Take 1 tablet(s) every day by oral route for 30 days. 10/30 completed Not Available Not Available Not Available Shingrix (PF) 50 mcg/0.5 mL intramuscul ar suspension, kit 10/04 completed Not Available Not Available Not Available Ozempic 0.25 mg or 0.5 mg (2 mg/1.5 mL) subcutaneou s pen injector INJECT 0.25 MG SC EVERY WEEK 09/24 completed Not Available Not Available Not Available Fluarix Quad 2119-3016 (PF) 60 mcg (15 mcg x 4)/0.5 mL IM syringe 06/30 completed Not Available Not Available Not Available Fluarix Quad (PF) 60 mcg (15 mcg x 4)/0.5 mL IM syringe 05/12 completed Not Available Not Available Not Available Wegovy 1.7 mg/0.75 mL subcutaneou s pen injector INJECT 1.7 MG UNDER THE SKIN ONE DAY A WEEK active Not Available Not Available No t Available Wegovy 1 mg/0.5 mL subcutaneou s pen injector INJECT 1 MG SUBCUTANE OUSLY EVERY WEEK FOR 30 DAYS. 03/30 completed Not Available Not Available Not Available Wegovy 0.25 mg/0.5 mL subcutaneou s pen injector INJECT 0.5 MG SC EVERY WEEK (TWO INJECTION S OF THE 0.25 MG DUE TO BACKORDER ) 01/19 completed Not Available Not Available Not Available Wegovy 0.5 mg/0.5 mL subcutaneou s pen injector INJECT 0.5 mg SC EVERY WEEK 01/19 completed Not Available Not Available Not Available Ozempic 0.25 mg or 0.5 mg (2 mg/3 mL) subcutaneou s pen injector 09/24 completed Not Available Not Available Not Available Zepbound 5 mg/0.5 mL subcutaneou s pen injector ADMINISTE R 5 MG UNDER THE SKIN 1 TIME A WEEK 01/23 completed Not Available Not Available Not Available Zepbound 2.5 mg/0.5 mL subcutaneou s pen injector ADMINISTE R 2.5 MG UNDER THE SKIN EVERY WEEK 10/29 completed Not Available Not Available Not Available Zepbound 7.5 mg/0.5 mL subcutaneou s pen injector ADMINISTE R 7.5 MG UNDER THE SKIN EVERY WEEK 03/07 completed Not Available Not Available Not Available Vitals Date Recorded Body height Oxygen saturation Heart rate Systolic And Diastolic Provider Name and Address Organization Details Last Updated DateTime 08/19/2022 162.56 cm 99 % 89 /min 130/78 mm[Hg] Ida Ross [facility] 08/19/2022 11:47:41 Date Recorded Body height Heart rate Oxygen saturation Systolic And Diastolic Provider Name and Address Organization Details Last Updated DateTime 01/20/2024 162.56 cm 78 /min 99 % 134/80 mm[Hg] NANCY SUÁREZ [address] [place] [address], [address], [facility] 4 14:58:54 Date Recorded Body height Body mass index (BMI) Body weight Heart rate Oxygen saturation Systolic And Diastolic Provider Name and Address Organization Details Last Updated DateTime 162.56 cm 28 kg/m2 98335.5 6 g 78 /min 98 % 134/80 mm[Hg] Jocelin Mena [facility] 09:40:38 Date Recorded Body weight Heart rate Oxygen saturation Systolic And Diastolic Provider Name and Address Organization Details Last Updated DateTime 07/26/2022 39277.93 g 83 /min 98 % 124/80 mm[Hg] Sabina Lu [facility] 07/26/2022 09:21:45 Social History Question Answer Notes LastModified by Organizat ion Details LastModified Time Tobacco Smoking Status Never Smoker Not Available [facility] 06/13/2020 03:36:24 What Was The Date Of Your Most Recent Tobacco Screening? 03/11/2025 Information not available 03/11/2025 Sex: Female Functional Status None recorded. Mental Status None recorded. Family History Nothing Reported. Medical History No medical history recorded. Gynecological History Statement/Question Response Date of Last Pap Smear 02/14/2017 Most Recent Mammogram 04/01/2017 Obstetrics History GPAL:G 0 P 0 0 0 0 Immunizations Vaccine Type Date Status Note Provider Nam e and Address Organization Details Recorded Time pneumococcal, unspecified formulation 1 completed Michelle julien [facility] 07/26/2022 09:14:54 pneumococcal, unspecified formulation 2 completed Michelle julien [facility] 07/26/2022 09:14:54 Tdap 9 completed Karen julien [facility] 05/03/2019 08:07:25 zoster live 9 completed Karen julien [facility] 05/03/2019 08:07:42 Influenza, split virus, quadrivalent, preservative 9 completed Michelle Schneider [facility] 07/26/2022 09:14:54 zoster live 9 completed Vipin Cao DO [address] [place] [address], [address] 07/19/2019 06:48:45 Influenza, split virus, quadrivalent, preservative 0 completed Michelle julien [facility] 07/26/2022 09:14:54 Past Encounters Encounter ID Performer Location Encounter Start Date Encounter Closed Date Diagnosis/Indication Diagnosis SNOMED-CT Code Diagnosis ICD10 Code Diagnosis IMO Codes Diagnosis Note [id number] Vipin Cao DO [facility] [address] [place] [address],[place] [address] 04/24/2018 08:59:12 04/24/2018 09:46:23 Essential hypertension 59005168 I10 lifestyle changes for BP discussed Generalize d anxiety disorder 08170777 F41.1 will continue current regimen but f/u for any significan t changes otherwise in 6 months for cpe [id number] Vipin Cao [facility] [address] [facility],[place] [address] 05/04/2018 16:08:43 05/04/2018 17:04:27 Antiphospholipid syndrome 56773556 D68.[address] angella Araujoti al lung disease 272489204 J84.9 to cont to follow dr cantu will need to follow closely Hemolytic anemia 6389332 [address] perales [id number] Vipin Cao [facility] [address] [facility],[place] [address] 10/20/2018 15:43:33 10/20/2018 16:37:41 Antiphospholipid syndrome 02895920 D68.61 up to date hemat[address]i st Migraine 67452933 G43.90 9 on topiramate Pulmonary embolism 97489 003 I26.99 no recent, cont. lovenox Essential hypertension 04490949 I10 stable Obstructiv e sleep apnea syndrome 00191331 G47.33 compliant [id number] Vipin Cao [facility] [address] [facility],[place] [address] 04/30/2019 09:30:15 04/30/2019 10:37:55 Adult health examination 116376856 Z00.00 Active or passive immunization 974291804 Z23 needs to get shingles vax and hep b because titers were negative Screening for malignant neoplasm of colon 294744338 Z12.11 Body mass index 30+ - obesity 147606461 Z68.35 [id number] Vipin Cao [facility] [address] [facility], [place] [address] 06/30/2019 16:13:07 06/30/2019 16:37:14 Acute low back pain 716051693 M54.5 likely sacroiliit is with sciatica cannot take nsaids on lovenox will wait and see but may need to consider ortho as she has had to have injections in the past Antiphosph olipid syndrome 71113377 D68.61 Essential hypertension 44411274 I10 lifestyle changes for BP discussed [id number] Vipin Cao [facility] [address] [facility],[place] [address] 07/14/2019 10:14:05 07/14/2019 10:44:35 Hemolytic anemia 68085267 D59.4 stable sees heme - dr elias [facility] lung disease 260225903 J84.[address] cantu Antiphosph olipid syndrome 40416856 D68.61 on lovenox in setting of coumadin failure Computed t omography result abnormal 819310035 R93.[address] abnormal - showed worsening opactities in patient with onset of pleuritic type pain in the subscapula r area of the back will be seeing pulm for this as well as [place] [id number] NANCY SUÁ[address]Z [facility] [address] [address] 10/04/2019 11:29:52 10/04/2019 14:13:40 Pain of left wrist [id number] 55341 M25.532 pain in left wrist in the anatomic snuffbox/s caphoid area, decreased ROM for a month advised to get thumb spica brace and wear until seen by ortho will f/u after XR Pulmonary embolism 58277 003 I26.99 cannot take NSAIDs due to blood thinners advised ice and tylenol Antiphosph olipid syndrome 07491328 D68.61 [id number] Vipin Cao DO [facility] [address] [address] 05/12/2020 10:44:01 05/12/2020 12:16:20 Pain of right shoulder joint [id number] 0688534 M25.511 will start will XR will most likely need MRI Essential hypertension 19942265 I10 BP fine will continue to monitor [id number] Vipin Cao [facility] [address] [address] 09/18/2021 08:30:57 09/19/2021 08:24:58 Essential hypertension 40040727 I10 Antiphosph olipid syndrome 09373841 D68.[address] perales Hemolytic anemia 1786065 [address] perales Obstructiv e sleep apnea syndrome 22108369 G47.33 cpap but she doesnt like it Depressive disorder 3548 9007 F32.A Pulmonary embolism 87945 003 I26.99 Interstiti al lung disease 611422818 J84.9 to cont to follow dr cantu will need to follow closely Migraine 53913152 G43.[address] wade in [place] gets codine from him Renewal of prescription 946421665 Z76.0 [id number] Vipin Cao [facility] [address], [place] [address] 11/09/2021 11:42:21 11/09/2021 16:42:57 Cough 12407796 R05.1 start on medrol and cough suppressan t Suspected COVID-19 58943 4004 Z20.822 will start on z troy in the meantime, waiting for results [id number] Vipin Cao [facility] [address],[place] [address] 04/12/2022 08:35:03 04/16/2022 08:54:25 Costal chondritis 56155370 M94.0 will start on celecoxib BID for the first week and QD for the next few weeks Antiphosph olipid syndrome 44300144 D68.61 stablestil l seeing specialist [id number] Vipin Cao [facility] [address], [place] [address] 05/29/2022 15:01:31 05/31/2022 11:00:39 Acute otitis media 2118550 H65.04 will start on abx and ear drop Obstructiv e sleep apnea syndrome 62090489 G47.33 fu with sleep medicine [id number] Vipin Cao [facility] [address] [facility], [place] [address] 07/26/2022 09:12:45 07/26/2022 15:23:58 Active or passive immunization 577587338 Z23 patient advised she is due for flu shot Serous otitis media 8032 7007 H65.01 was supposed to get from ENT but never got sent to pharmwill send in for herhas fluid build up in her inner ear Overweight 620811986 E66 .3 will trial phentermin e and fu on 08/19 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 [id number] 35270 G56.01 will set her up with hand surgeon due to combo carpal tunnel and tenosynovi tis Fatigue 92473187 R53.83 had work up with hematology nothing significan t foundcould be her CPAP Obstructiv e sleep apnea syndrome 85569984 G47.33 fu with sleep medicine [id number] Vipin Cao [facility] [address],[place] [address] 08/19/2022 11:38:41 08/19/2022 14:14:20 Serous otitis media 64711252 H65.01 was supposed to get from ENT but never got sent to pharmwill send in for herhas fluid build up in her inner ear Overweight 186917051 E66 .3 will trial phentermin e and fu on 08/19 [id number] Vipin Cao [facility] [address],[place] [address] 08/08/2023 09:26:17 08/08/2023 16:07:42 Acute sinusitis 98518976 J01.01 start levo and pred Anemia 832069360 D59.4 stable Pulmonary embolism 16218 003 I26.99 cannot take NSAIDs due to blood thinners advised ice and tylenol Interstiti al lung disease 552697329 J84.89 stable [id number] Vipin Cao [facility] [address],[place] [address] 01/20/2024 14:52:11 01/20/2024 16:26:37 Depression screening 793819840 Z13.31 0 Fatigue 77784712 R53.83 will set up with lab work for the patient Carotid bruit 898374175 R09.89 needs MRA for odd appearance of carotid Transient cerebral ischemia 549452377 G45.9 will recheck with a MRA instead since MRI was normal Anxiety 74856661 F41.1 will set up with the bupropion [id number] Vipin Cao DO [facility] [address],[place] [address] 03/11/2025 09:36:06 03/11/2025 09:54:29 Depression screening 574482662 Z13.31 0 Obstructiv e sleep apnea syndrome 26770305 G47.33 will try to switch back after enough time on the wegovy without effect the same she was having Obesity 611363634 E66.9 may be able to switch back to Zepbound Essential hypertension 72611472 I10 BP fine Anxiety 62699129 F41.1 will set up with the bupropion Health Concerns Section Related Observation LastModified by Organization Detai ls LastModified Time None Recorded Concern Status LastModified by Organization Details LastModified Time None Recorded Advance Directives Directive None Recorded Payers Insurance Date Sequence Insurance Name Policy Number Policy Chin Covered Member ID Chin Member ID Guarantor Name 03/11/2025 1 [facility]: [facility] [id number] Prachi Lovell [id number] Prachi Lovell Notes Date Note Type Note Provider Name and Address Organization Details Recorded Time 2 text/html ROS as noted in the HPI c/o joint pain never got medrol for ENTwill send in and have her fu if no improvement with the fluid build up discussed starting phentermine for the weightagreed, will fu 08/19 had right sided carpal tunnel and tenosynovitisworks 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 try brace and NSAIDs with no successagreed to fu with hand surgeon sleep apnea, old CPAP, could be ineffective causing her fatigue since she reports that mask keeps slipping offwill send back to sleep medicine for adjustment, possibly new machine NANCY SUÁREZ [address] [facility], [place], [address], [facility] 07/26/2022 09:50:50 3 text/html ROS as noted in the HPI 1 mo f/u overweight: the patient states she doesn't feel like much has changed muchdoesn't get weight done here, only down a pound or two at homeagreed to increasecan also adjust her topimax up as well in a week or two if still no progress serous otitis media: madisyn addison, again, never received it a month agowill fu with patient if she doesn't get it again NANCY SUÁREZ [address] [place], [address], [facility] 08/19/2022 12:25:04 3 text/html ROS as noted in the [facility] c/o sick symptoms telemed phone call pt consents to phone call had Mariela developed flu or flu like symptomsnow has a bronchitis possible ear infection or sinus infection will start on treatment NANCY SUÁREZ [address] [place], [address], [facility] 08/08/2023 11:18:13 4 text/html ROS as noted in the [facility] hospital f/u the patient reports her symptoms originally when she was driving to [facility] that she was very tired, restlessness, itchy, AMSthe patient had trouble driving, then went home and took a napcalled office to report symptoms, was told to go to the ER just in case she was having a stroke given AMS and slurred speech the patient has known anti-phospholipid syndromehigh risk for clots, hx of PEs, DVTs the patient was had an unremarkable MRI and CT the patient is incredibly fatiguedno recent bw in our chart (not from hospital)sees hematology and sleep medicinesleep medicine said her CPAP is working very well cartoid R side had an unusual outpouching of her carotid couldn't tell on USneeds an MRA agreed to MRA both head and neck and EEG per neurolabs set up for fatigue NANCY SUÁREZ [address] [place], [address], [facility] 01/20/2024 15:23:22 5 text/html ROS as noted in the [facility] medication check the patient reports that she is doing well on her medicationsno side effects on the current medicationssees a therapist regularly and is working on coping mechanisms a lot of stress comes from her daughter who is in [place] right now who has pretty sig mental health problems and nahum vyas Estephania is working through this with her therapist HTN: today in the office the patient BP is 134/80 L arm sittingthe patient is doing well on the BP medication with no side effects and no adjustment of their medications needed today at the appointmentwell-control led on medicationdenies chest pain, sob, ankle swelling, orthopnea, palpitations sleep apnea, okay, could improve with continued weight loss, will attempt to try for zepbound after enough time on the wegovy NANCY SUÁREZ [address] [facility], [place], [address], [facility] 03/11/2025 09:52:46 OBGyn Episode No OBEpisode recorded.
== END 2025-07-14 14:58 | disposition home or self-care (01) ==
LOC: HO.HSM 14:25
PROVIDERS: PCP Internal Medicine; Visit Provider Registered Nurse
DX: G43.909 Migraine, unspecified, not intractable, without status migrainosus (principal)
CPT/HCPCS: 99214